=== PATIENT | male | born 1990 ===

== ENCOUNTER 2021-11-25 13:57 | Emergency (ER) | payer SELFPAY ==
--- NOTE | 2021-11-25 17:45 | Emergency Department Report ---
ED General Adult HPI - General Chief complaint: Headache Stated complaint: headache Source: EMS Mode of arrival: Ambulatory Limitations: No Limitations - History of Present Illness Initial comments: 29-year-old male presents to the ED from [facility] for medical clearance. Patient ran his ran into the wall hitting his head after being upset that he was not going home today. Patient was sent to the hospital for clearance of the head. Patient was given Haldol prior to arrival. Patient is alert and oriented x3. Patient states that he ran into the wall because he was ready to go home. Patient states that every day they tell him that he is going home the next day. Mother is in the room with patient and agreed with patient story. Patient denies any suicidal or homicidal ideation. Patient states that headache is a 0 out of 10. Patient denies any LOC. Patient seen calm and non agitated. No acute distress noted .no ill appearance noted Location: head Radiation: non-radiation Severity scale (0 -10): 0 Improves with: none Worsens with: none Associated Symptoms: denies other symptoms Treatments Prior to Arrival: none - Related Data Allergies Allergy/AdvReac Type Severity Reaction Status Date / Time No Known Allergies Allergy Verified 11/25/21 14:02 ED Review of Systems ROS: Stated complaint: headache Other details as noted in HPI Constitutional: denies: chills, fever Eyes: denies: eye pain, eye discharge, vision change ENT: denies: ear pain, throat pain Respiratory: denies: cough, shortness of breath, wheezing Cardiovascular: denies: chest pain, palpitations Endocrine: no symptoms reported Gastrointestinal: denies: abdominal pain, nausea, diarrhea Genitourinary: denies: urgency, dysuria Musculoskeletal: denies: back pain, joint swelling, arthralgia Skin: denies: rash, lesions Neurological: denies: headache, weakness, paresthesias Psychiatric: denies: anxiety, depression Hematological/Lymphatic: denies: easy bleeding, easy bruising ED Past Medical Hx - Past Medical History Previous Medical History?: Yes Hx Psychiatric Treatment: Yes (bipolar) - Surgical History Past Surgical History?: No - Social History Smoking Status: Never Smoker Substance Use Type: None ED Physical Exam - General Limitations: No Limitations General appearance: alert, in no apparent distress - Head Head exam: Present: atraumatic, normocephalic - Eye Eye exam: Present: normal appearance - ENT ENT exam: Present: mucous membranes moist - Neck Neck exam: Present: normal inspection - Respiratory Respiratory exam: Present: normal lung sounds bilaterally. Absent: respiratory distress - Cardiovascular Cardiovascular Exam: Present: regular rate, normal rhythm. Absent: systolic murmur, diastolic murmur, rubs, gallop - GI/Abdominal GI/Abdominal exam: Present: soft, normal bowel sounds - Rectal Rectal exam: Present: deferred - Extremities Exam Extremities exam: Present: normal inspection - Back Exam Back exam: Present: normal inspection - Neurological Exam Neurological exam: Present: alert, oriented X3 - Psychiatric Psychiatric exam: Present: normal affect, normal mood - Skin Skin exam: Present: warm, dry, intact, normal color. Absent: rash ED Course Vital Signs 11/25/21 13:58 Temperature 98.2 F Pulse Rate 106 H Respiratory 16 Rate Blood Pressure 148/100 O2 Sat by Pulse 100 Oximetry ED Medical Decision Making [place] [address] Cat Scan Report Signed Patient: Rikki Pedro MR#: [id number] : 1990 Acct:[id number] Age/Sex: 31 / M ADM Date: 11/25/21 Loc: ED Attending Dr: Ordering Physician: KIRSTIN ARMAS Date of Service: 11/25/21 Procedure(s): CT head/brain wo con Accession Number(s): [id number] cc: KIRSTIN ARMAS . CT head/brain wo con INDICATION / CLINICAL INFORMATION: 31 years Male; headache. TECHNIQUE: Routine CT head without contrast. All CT scans at this location are performed using CT dose reduction for ALARA by means of automated exposure control. COMPARISON: None. FINDINGS: BRAIN / INTRACRANIAL CONTENTS: The motion significantly degrades the image quality. However, the findings appear most consistent with calcification within the basal ganglia bilaterally which is nonspecific though may be on an endocrinological basis. Patient this age at. The ventricular system is within normal limits in size and configuration. There is no clear CT evidence of acute intracranial hemorrhage or significant mass effect. ORBITS: No significant abnormality of visualized orbits. SINUSES / MASTOIDS: No significant abnormality in the visualized paranasal sinuses or mastoid air cells. CRANIOCERVICAL JUNCTION: No significant abnormality. ADDITIONAL FINDINGS: None. IMPRESSION: 1. The study is limited by motion. However, the findings are most consistent with calcification involving basal ganglia bilaterally as described. 2. The CT of the brain otherwise is grossly unremarkable. Signer Name: Shen Hathaway MD Signed: 11/25/2021 6:08 PM Workstation Name: [id number] Transcribed By: Dictated By: Shen Hathaway MD - Medical Decision Making 29-year-old male presents to the ED from [facility] for medical clearance. Patient ran his ran into the wall hitting his head after being upset that he was not going home today. Patient was sent to the hospital for clearance of the head. Patient was given Haldol prior to arrival. Patient is alert and oriented x3. Patient states that he ran into the wall because he was ready to go home. Patient states that every day they tell him that he is going home the next day. Mother is in the room with patient and agreed with patient story. Patient denies any suicidal or homicidal ideation. Patient states that headache is a 0 out of 10. Patient denies any LOC. Patient seen calm and non agitated. No acute distress noted .no ill appearance noted..CT report show FINDINGS: 1. The study is limited by motion. However, the findings are most consistent with calcification involving basal ganglia bilaterally as described. 2. The CT of the brain otherwise is grossly unremarkable. Rechecked the patient is resting quietly quietly and comfortable and feeling better. I discussed the results of diagnostic study, my clinical impression and the plan for further treatment with the patient,,patient sitter ,and patient mother . Patient mother agrees with plan and discharge at this present time. All question addressed. I have given the patient siter instruction regarding a diagnosis ,expectation ,follow-up and return precaution. I explained to the patient mother that emergent condition may arise and to return to the ED for new worsen and any new persisting condition. I have explained the importance of following up with the primary care physician or referral physician listed below has instructed. The patient mother verbalized understanding of discharge instruction. Critical care attestation.: If time is entered above; I have spent that time in minutes in the direct care of this critically ill patient, excluding procedure time. ED Disposition Clinical Impression: Headache Qualifiers: Headache type: post-traumatic Headache chronicity pattern: acute headache Intractability: not intractable Qualified Code(s): G44.319 - Acute post- traumatic headache, not intractable Disposition: 01 HOME / SELF CARE / HOMELESS Is pt being admited?: No Does the pt Need Aspirin: No Condition: Stable Instructions: Head Injury, Adult Additional Instructions: may take the [id number] Tylenol Motrin for pain Return to the ED for any worsening symptom Referrals: МАРИНА DIAZ II, MD [Staff Physician] - 3-5 Days
--- NOTE | 2021-11-25 18:12 | Cat Scan Report ---
. CT head/brain wo con INDICATION / CLINICAL INFORMATION: 31 years Male; headache. TECHNIQUE: Routine CT head without contrast. All CT scans at this location are performed using CT dos e reduction for ALARA by means of automated exposure control. COMPARISON: None. FINDINGS: BRAIN / INTRACRANIAL CONTENTS: The motion significantly degrades the image quality. However, the find ings appear most consistent with calcification within the basal ganglia bilaterally which is nonspeci fic though may be on an endocrinological basis. Patient this age at. The ventricular system is within normal limits in size and configuration. There is no clear CT evidence of acute intracranial hemorrh age or significant mass effect. ORBITS: No significant abnormality of visualized orbits. SINUSES / MASTOIDS: No significant abnormality in the visualized paranasal sinuses or mastoid air toro ls. CRANIOCERVICAL JUNCTION: No significant abnormality. ADDITIONAL FINDINGS: None. IMPRESSION: 1. The study is limited by motion. However, the findings are most consistent with calcification invol ving basal ganglia bilaterally as described. 2. The CT of the brain otherwise is grossly unremarkable. Signer Name: Shen Hathaway MD Signed: 11/25/2021 6:08 PM Workstation Name: [id number]
[2021-11-25 20:02] VITALS: BP 119/70
== END 2021-11-25 23:03 | disposition home or self-care (01) ==
LOC: ED 13:57
DX: R51.9 Headache, unspecified (principal); F31.9 Bipolar disorder, unspecified
CPT/HCPCS: 70450; 99284